=== PATIENT | male | born 1955 | race Caucasian/White ===

== ENCOUNTER 2017-09-13 08:10 | Emergency (ER) | payer OTHER ==
[~2017-09-13] VITALS: Ht 182.9 cm; Wt 62.6 kg
[2017-09-13 08:13] VITALS: Ht 182.9 cm; Wt 62.6 kg
[2017-09-13 08:45] LABS: PLATELET COUNT 191 x10^3mcL (130-400); RED CELL DISTRIBUTION WIDTH 12.6 % (11.5-14.5)
[2017-09-13 08:52] LABS: CALCIUM 8.7 mg/dL (8.5-10.1); CHLORIDE SERUM 107 mmol/L (98-107); CREATININE SERUM 1.1 mg/dL (0.7-1.3); GFR1 > 60 mL/min; GLUCOSE SERUM 132 mg/dL (74-106); POTASSIUM SERUM 4.1 mmol/L (3.5-5.1); SODIUM SERUM 143 mmol/L (136-145)
[2017-09-13 08:57] LABS: ALBUMIN 3.9 g/dL (3.4-5.0); ALKALINE PHOSPHATASE 99 U/L (46-116); ALT/SGPT 33 U/L (16-63); AST/SGOT 27 U/L (15-37); BILIRUBIN TOTAL 0.67 mg/dL (0.20-1.00); LIPASE 240 IU/L (73-393); TOTAL PROTEIN, SERUM 6.8 g/dL (6.4-8.2)
[2017-09-13 09:24] VITALS: BP 196/105
== END 2017-09-13 09:24 | disposition short-term general hospital (02) ==
LOC: ED 08:10
PROVIDERS: Emergency Medicine
PROC: 3E033GC Introduction of Other Therapeutic Substance into Peripheral Vein, Percutaneous Approach (ICD-10-PCS; principal; 2017-09-13)
DX: R10.13 Epigastric pain (principal); I44.7 Left bundle-branch block, unspecified; R00.1 Bradycardia, unspecified
CPT/HCPCS: 83880; J2550; J3010; J7030; J7040; Q9967